=== PATIENT | female | born 1980 | race Asian ===

== ENCOUNTER 2016-07-09 16:15 | Emergency (ER) | payer MEDICAID ==
[~2016-07-09] VITALS: Ht 149.9 cm; Wt 53.1 kg
[~2016-07-09 16:15] MED LIST: ALPR.5T PO; DCS100C PO; FERR325C PO; IBP800T PO; NITR100C PO; OXYC-12 PO; PNV1TABL72 PO; PREN1TAB4 PO; PRM25T PO
--- NOTE | 2016-07-09 17:44 | ED EENT ---
History of Present Illness General Chief Complaint: Dental Problems/Pain Stated Complaint: DENTAL PAIN Nursing Triage Note: AMB TO ED REPORTS WAS EATING ON SATURDAY. BROKE TOOTH ON L SIDE . HAS DENTIS APPOINTMENT ON SAT. Source: patient Exam Limitations: no limitations History of Present Illness Time seen by provider: 18:37 Initial Comments Patient presents to the ED with c/o left lower dental pain. states she broke the tooth while eating on . patient states she has a dentist appointment saturday. Timing/Duration: abrupt Location: dental Prearrival Treatment: no prearrival treatment Presenting Symptoms/Injuries: left lower dental pain. Modifying Factors: Worse With Other (worse with palpation and chewing.) Allergies and Home Medications Allergies Coded Allergies: No Known Drug Allergies (Verified , 03/22/07) Home Medications Amoxicillin 500 Mg Capsule, 500 MG PO QID, #28 Ref 0 Prescribed by: NAVA BROOKE on 07/09/161917 Tramadol HCl 50 Mg Tablet, 50 MG PO Q4H PRN for PAIN, #14 Ref 0 Prescribed by: NAVA BROOKE on 07/09/161917 Review of Systems Constitutional: No chills, No fever, No malaise Eyes: No Symptoms Reported Ears: No Symptoms Reported Nose: no symptoms reported Mouth: see HPI, denies loose teeth, pain, denies swelling Throat: denies pain, denies swelling, denies neck stiffness, denies hoarse, denies painful swallowing, denies difficulty with fluids Respiratory: no symptoms reported Cardiovascular: no symptoms reported Gastrointestinal: no symptoms reported Skin: no symptoms reported Neurological: No Symptoms Reported All Other Systems Reviewed Negative Unless Noted: Yes (Negative excepted noted.) Past Arwbrrc-Gydyjn-Gusuay Hx Patient Social History Alcohol Use: Denies Use Recreational Drug Use: No Smoking Status: Current Everyday Smoker Recent Foreign Travel: No Contact w/Someone Who Travel: No Recent Infectious Disease Expo: No Recent Hopitalizations: Yes (C-SECTIONS) Immunizations Up To Date Date of Influenza Vaccine: Dec 30, 2010 Surgeries HX Surgeries: Yes Surgeries: Section, Hysterectomy Respiratory Hx Respiratory Disorders: No Cardiovascular Hx Cardiac Disorders: No Neurological Hx Neurological Disorders: Yes Reproductive System Hx Reproductive Disorders: Yes (CERVICAL DYSPLASIA) 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 Genitourinary Hx Genitourinary Disorders: No Gastrointestinal Hx Gastrointestinal Disorders: No Musculoskeletal Hx Musculoskeletal Disorders: No Endocrine Hx Endocrine Disorders: No HEENT HX ENT Disorders: No Psychosocial Hx Psychiatric Problems: No Blood Transfusions Hx Blood Disorders: No Reviewed Nursing Assessment Reviewed/Agree w Nursing PMH: Yes Family Medical History Significant Family History: No Pertinent Family Hx Physical Exam Vital Signs General Appearance: WD/WN, no apparent distress Eyes: bilateral eye EOMI, bilateral eye PERRL, bilateral eye normal inspection Ears: bilateral ear TM normal, bilateral ear auricle normal, bilateral ear canal normal Nose: normal inspection Mouth/Throat: pharynx normal, No excessive drooling, No mandibular swelling, No maxillary swelling, No trismus, No uvula swelling, No voice changes, other ( broken left lower tooth w/o erythema or swelling of the left lower gums.) Neck: non-tender, full range of motion, supple, normal inspection Cardiovascular: regular rate, rhythm, no murmur Respiratory: lungs clear, normal breath sounds, no respiratory distress Neurologic/Psychiatric: alert, normal mood/affect, oriented x 3 Skin: normal color, warm/dry Progress/Results/Core Measures Results/Orders My Orders Vital Signs/I&O Blood Pressure Mean: 94 Departure Impression Impression: Primary Impression: Dental caries Disposition: HOME, SELF-CARE Condition: Improved Departure-Patient Inst. Decision time for Depature: 19:17 Referrals: [facility] (PCP/Family) Primary Care Physician Patient Instructions: Dental Pain (DC) Add. Discharge Instructions: All discharge instructions reviewed with patient and/or family. Voiced understanding. Medications as instructed. Tylenol extra strength over-the- counter as directed for pain. Ibuprofen 800 mg by mouth every 8 hours as needed for pain. Lidocaine gauze- Place 1 pad between affected teeth and bite down gently for 5-10 minutes. Repeat every 6 hours as needed for pain. Do not fall asleep early down with the gauze in your mouth as this may result and choking or . Ice packs or warm packs as needed for pain. Soft diet. Follow-up with your dentist on Saturday as previously scheduled. Return to the emergency department for worsened symptoms or any other concerns. Scripts Amoxicillin (Amoxicillin) 500 Mg Capsule 500 MG PO QID, #28 CAP 0 Refills Prov: NAVA BROOKE 07/09/16 Tramadol HCl (Tramadol HCl) 50 Mg Tablet 50 MG PO Q4H Y for PAIN, #14 TAB 0 Refills Prov: NAVA BROOKE 07/09/16 Work/School Note: Work Release Form Date Seen in the Emergency Department: Jul 09, 2016 Return to Work: Jul 10, 2016 Restrictions: No Restrictions NAVA BROOKE Jul 09, 2016 17:44
[2016-07-09] MEDS ORDERED: TRAM50TA2 PO (19:18)
[2016-07-09] MEDS ORDERED: AMOX500C2 PO (19:18)
[2016-07-09 19:26] VITALS: BP 125/74
[2016-07-09] MEDS ORDERED: LIDOCAINE 2% VISCOUS 15 ML UDC PO ONE (19:30)
== END 2016-07-09 19:25 | disposition home or self-care (01) ==
LOC: EDUNIT# 16:15 → ER 16:18
DX: K02.9 Dental caries, unspecified (principal); F17.210 Nicotine dependence, cigarettes, uncomplicated
CPT/HCPCS: 99282

== ENCOUNTER 2016-12-12 23:34 | Emergency (ER) | payer MEDICAID ==
[~2016-12-12] VITALS: Ht 149.9 cm; Wt 53.1 kg
[~2016-12-12 23:34] MED LIST changes: +AMOX500C2 PO; +TRAM50TA2 PO
[2016-12-13] MEDS ORDERED: KETOROLAC 60 MG/2 ML VIAL IM STA (00:08)
[2016-12-13] MEDS ORDERED: RX-NAPROXEN (NAPROSYN) 250 MG TAB PPK#4 PO STA (00:08)
[2016-12-13] MEDS ORDERED: AMOX-358 PO (00:15)
[2016-12-13] MEDS ORDERED: AUGMENTIN 875 MG TAB (AMOXICILLIN/CLAVULANATE) PO SCH (00:15)
[2016-12-13] MEDS ORDERED: LIDO15SO2 MM (00:15)
[2016-12-13] MEDS ORDERED: LIDOCAINE 1% INJ 20 ML (XYLOCAINE) VIAL INJ ONE (00:15)
[2016-12-13] MEDS ORDERED: cefTRIAXone 1 GM (ROCEPHIN) VIAL IM ONE (00:15)
[2016-12-13] MEDS ORDERED: LIDOCAINE 2% VISCOUS 15 ML UDC MM ONE (00:15)
[2016-12-13] MEDS ORDERED: KETO10TA PO (00:15)
--- NOTE | 2016-12-13 00:15 | ED EENT ---
History of Present Illness General Chief Complaint: Dental Problems/Pain Stated Complaint: DENTAL PAIN Nursing Triage Note: PT AMBULATED TO ROOM. PT COMPLAINS OF RIGHT LOWER DENTAL PAIN SINCE SATURDAY. PT IS ON ANTIBIOTICS AND STATES NOTHING IS HELPING, SHE FEELS LIKE SHE IS GETTING WORSE. PT HAS BEEN TAKING IBUPROFEN FOR PAIN. Source: patient History of Present Illness Time seen by provider: 23:55 Initial Comments C/O DENTAL PAIN SINCE SATURDAY --RIGHT LOWER JAW AREA BEGAN TO SWELL ON SATURDAY HAS CHRONIC DENTAL PROBLEMS, AND CLAIMS "THIS IS THE 6TH TIME IN 3 MONTHS THAT I 'VE HAD AN ABSCESS" --STATES USUALLY WITH THIS TOOTH PT WAS SEEN [facility] ON FOR THIS PROBLEM, AND WAS GIVEN RX FOR CLINDAMYCIN 300 MG 1 TID #30 ( PT STILL HAS #15 PILLS IN BOTTLE, AND ADMITS SHE HAS NOT BEEN TAKING THEM ON A DAILY BASIS) WAS ALSO REFERRED TO [facility] IN [place], AND HAS AN APPOINTMENT "TO GET 7 TEETH PULLED" ON 12/19/16 PT STATES AREA IS GETTING WORSE, BUT HAS NOT ATTEMPTED TO FOLLOW UP WITH DR. MCGILL AGAIN STATES NO RELIEF WITH IBUPROFEN NO FEVER PCP: [facility] AND DR. JARAMILLO Allergies and Home Medications Allergies Coded Allergies: No Known Drug Allergies (Verified , 03/22/07) Home Medications Amoxicillin 500 Mg Capsule, 500 MG PO QID, #28 Ref 0 Prescribed by: NAVA BROOKE on 07/09/161917 Amoxicillin/Potassium Clav 1 Each Tablet, 2 EACH PO BID, #40 Prescribed by: MARC GARCIA on 12/13/1614 Ketorolac Tromethamine 10 Mg Tablet, 10 MG PO Q6H, #15 Prescribed by: MARC GARCIA on 12/13/1614 Lidocaine HCl 15 Ml Solution, 1-2 ML MM Q 1-2 HOURS, #100 Prescribed by: MARC GARCIA on 12/13/1614 Tramadol HCl 50 Mg Tablet, 50 MG PO Q4H PRN for PAIN, #14 Ref 0 Prescribed by: NAVA BROOKE on 07/09/161917 Review of Systems Constitutional: no symptoms reported Eyes: No Symptoms Reported Ears: No Symptoms Reported Nose: no symptoms reported Mouth: see HPI, pain, swelling Throat: no symptoms reported Respiratory: no symptoms reported Cardiovascular: no symptoms reported Gastrointestinal: no symptoms reported Musculoskeletal: no symptoms reported Skin: no symptoms reported Neurological: No Symptoms Reported Hematologic/Lymphatic: No Symptoms Reported Immunological/Allergic: no symptoms reported Past Pbanxew-Qppnup-Lvptrk Hx Patient Social History Alcohol Use: Denies Use Recreational Drug Use: No (DENIES) Smoking Status: Current Everyday Smoker (1 PPD) Type Used: Cigarettes 2nd Hand Smoke Exposure: No Recent Foreign Travel: No Contact w/Someone Who Travel: No Recent Infectious Disease Expo: No Recent Hopitalizations: No Physical Abuse: No Sexual Abuse: No Immunizations Up To Date Date of Influenza Vaccine: Dec 30, 2010 Seasonal Allergies Seasonal Allergies: No Surgeries History of Surgeries: Yes (HYST/OVARIES IN PLACE 2011; X 3; BMT'S) Surgeries: Section, Ear Surgery, Hysterectomy Respiratory History of Respiratory Disorde: No Cardiovascular History of Cardiac Disorders: No Neurological History of Neurological Disord: No Reproductive System : No Hx Reproductive Disorders: Yes (CERVICAL DYSPLASIA--S/P HYST) Sexually Transmitted Disease: 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 Genitourinary History of Genitourinary Disor: No Gastrointestinal History of Gastrointestinal Di: No Musculoskeletal History of Musculoskeletal Dis: No Endocrine History of Endocrine Disorders: No HEENT History of HEENT Disorders: Yes (CHRONIC DENTAL PROBLEMS; S/P BMT'S) 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 REEKS OF CIGARETTES) Eyes: bilateral eye normal inspection, bilateral eye PERRL, bilateral eye EOMI Ears: bilateral ear auricle normal, bilateral ear canal normal, bilateral ear TM normal Nose: normal inspection Mouth/Throat: other (MILD SWELLING TO RIGHT LOWER JAW; TENDERNESS AND SWELLING AND ERYTHEMA TO GUMS AROUND RIGHT LOWER PRE-MOLARS/ APPEARANCE OF ABSCESS TO GUM TISSUE. NO FLUCTUANCE TO FACE OR SUB MANDIBULAR AREA EXTERNALLY. 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, no motor/sensory deficits, alert, oriented x 3 Skin: normal color, warm/dry, other (NO ERYTHEMA TO FACE ) Progress/Results/Core Measures Results/Orders My Orders Orders - MARC GARCIA DO Ketorolac Injection (Toradol Injection) (12/13/16 00:08) Ceftriaxone Injection (Rocephin Injectio (12/13/16 00:15) Lidocaine 1% Injection (Xylocaine 1% Inj (12/13/16 00:15) Amoxicillin/Clavulanate Tablet (Augmenti (12/13/16 00:15) Rx-Naproxen (Rx-Naprosyn) (12/13/16 00:08) Lidocaine 2% Viscous 15 Ml (Xylocaine Vi (12/13/16 00:15) Medications Given in ED Current Medications Medications Dose Ordered Sig/Manuel Route Start Time Stop Time Status Last Admin Dose Admin Ceftriaxone Sodium 1,000 mg ONCE ONCE IM 12/13/16 00:15 12/13/16 00:16 DC 12/13/16 00:20 1,000 MG Lidocaine HCl 2.1 ml ONCE ONCE INJ 12/13/16 00:15 12/13/16 00:16 DC 12/13/16 00:21 2.1 ML Lidocaine HCl 5 ml ONCE ONCE MM 12/13/16 00:15 12/13/16 00:16 DC 12/13/16 00:27 5 ML Vital Signs/I&O Vital Sign - Last 12Hours 12/12/16 12/13/16 23:38 00:38 Temp 96.9 96.9 Pulse 79 65 Resp 20 20 B/P (MAP) 163/100 Pulse Ox 100 100 O2 Delivery Room Air Room Air Blood Pressure Mean: 121 Progress Note : Progress Note PAIN IMPROVED AT DISMISSAL Departure Impression Impression: Primary Impression: Dental abscess Additional Impression: Dental caries Disposition: 01 HOME, SELF-CARE Condition: Improved Departure-Patient Inst. Referrals: [facility] (PCP/Family) Primary Care Physician Patient Instructions: Dental Pain (DC), Tooth Abscess (DC), Tooth Decay, Adult (DC) Add. Discharge Instructions: FREQUENT [place] SWISHES STOP CLINDAMYCIN KEEP YOUR APPOINTMENT WITH [place] [facility] NEXT WEEK FOLLOW UP WITH DR. MCGILL IF SYMPTOMS WORSEN All discharge instructions reviewed with patient and/or family. Voiced understanding. Scripts Lidocaine HCl (Lidocaine HCl Viscous) 15 Ml Solution 1-2 ML MM Q 1-2 HOURS for Pain, #100 ML Prov: MARC GARCIA DO 12/13/16 Ketorolac Tromethamine (Ketorolac Tromethamine) 10 Mg Tablet 10 MG PO Q6H for Pain, #15 TAB Prov: MARC GARCIA DO 12/13/16 Amoxicillin/Potassium Clav (Augmentin 875-125 Tablet) 1 Each Tablet 2 EACH PO BID for INFECTION, #40 TAB Prov: MARC GARCIA DO 12/13/16 MARC GARCIA DO Dec 13, 2016 00:15
[2016-12-13 00:38] VITALS: BP 153/92
== END 2016-12-13 00:38 | disposition home or self-care (01) ==
LOC: EDUNIT# 23:34 → ER 23:38
DX: K04.7 Periapical abscess without sinus (principal); K02.9 Dental caries, unspecified; F17.210 Nicotine dependence, cigarettes, uncomplicated; Z90.710 Acquired absence of both cervix and uterus; Z87.59 Personal history of other complications of pregnancy, childbirth and the puerperium; Z87.448 Personal history of other diseases of urinary system
CPT/HCPCS: 99284

== ENCOUNTER 2016-12-17 08:34 | Emergency (ER) | payer MEDICAID ==
[~2016-12-17] VITALS: Ht 149.9 cm; Wt 47.6 kg
[~2016-12-17 08:34] MED LIST changes: +AMOX-358 PO; +KETO10TA PO; +LIDO15SO2 MM
[2016-12-17] MEDS ORDERED: CLINDAMYCIN INJECTION 900 MG in NS (IVPB) 50 ML IV ONE (09:30)
[2016-12-17] MEDS ORDERED: KETOROLAC 30 MG/ML VIAL IVP ONE (09:30)
--- NOTE | 2016-12-17 09:30 | ED EENT ---
History of Present Illness General Chief Complaint: Dental Problems/Pain Stated Complaint: TOOTH ABCESS Nursing Triage Note: PT STATES HAVING HX OF DENTAL ABSCESSES, IS CURRNETLY ON ABX, WAS SEEN HERE IN THE ER LAST WEEK FOR PAIN ON THE LOWER RT, CC TODAY OF PAIN AND SWELLING ON THE LT LOWER. PT HAS THROWN UP THIS MORNING. PT IS SCHEDULED FOR DENTAL SURGERY THIS COMING SATURDAY. Source: patient, old records Exam Limitations: no limitations (SUAD FRANKLIN) History of Present Illness Time seen by provider: 08:50 Initial Comments Mireya Elizondo is a 36 year old female presenting to the ED with left lower jaw pain and swelling. She states that she has had abscesses on both sides on and off since early September. She has seen Dr. Lizarraga for a dental appointment and states she is scheduled to have 7 teeth pulled on 12/19/16. She was seen last week in the ED for pain and swelling of the right lower jaw, which has resolved. She was given Rocephin and prescribed amoxicillin/clavulanic acid, ketorolac, and topical lidocaine. She was not able to fill her prescription immediately but has taken the antibiotic as prescribed for the last two days. Saturday night the left side of her lower jaw began hurting. The pain worsened yesterday and there was noticeable swelling Saturday night that has been increasing. She states the ketorolac does not seem to help the pain but the lidocaine helps. She went to work this morning but left after throwing up and came here. She currently rates her pain at a 7. She reports low grade fevers controlled with ibuprofen, not being able to eat much because of the pain in her mouth, and numbness around her lips on the left side as the swelling has increased. (SUAD FRANKLIN) Allergies and Home Medications Allergies Coded Allergies: No Known Drug Allergies (Verified , 03/22/07) Home Medications Amoxicillin/Potassium Clav 1 Each Tablet, 2 EACH PO BID, #40 Prescribed by: MARC GARCIA on 12/13/16 0015 Hydrocodone/Acetaminophen 1 Each Tablet, 1 EACH PO Q4H PRN for PAIN, #20 Prescribed by: GALLO GARZA on 12/17/16 1121 Ketorolac Tromethamine 10 Mg Tablet, 10 MG PO Q6H, #15 Prescribed by: MARC GARCIA on 12/13/16 0015 Lidocaine HCl 15 Ml Solution, 1-2 ML MM Q 1-2 HOURS, #100 Prescribed by: MARC GARCIA on 12/13/16 0015 Ondansetron 4 Mg Tab.rapdis, 4 MG SL Q4H PRN for NAUSEA/VOMITING-1ST LINE, #10 Prescribed by: GALLO GARZA on 12/17/16 1123 Review of Systems Constitutional: fever (pt reports temperatures around 100, decreased with ibuprofen) Eyes: No Symptoms Reported Ears: No Symptoms Reported Nose: no symptoms reported Mouth: see HPI, pain (bilaterally, left more than right), swelling (left lower cheek and jaw), denies previous injury Throat: no symptoms reported Respiratory: no symptoms reported Cardiovascular: no symptoms reported Gastrointestinal: No abdominal pain, No nausea, vomiting (single episode this morning) Musculoskeletal: no symptoms reported Skin: no symptoms reported Neurological: Numbness (left side of mouth around lips) Hematologic/Lymphatic: No Symptoms Reported Immunological/Allergic: no symptoms reported (SUAD FRANKLIN) Past Syyhlgc-Prkdqx-Wdpawz Hx Patient Social History Alcohol Use: Denies Use Recreational Drug Use: No Smoking Status: Current Everyday Smoker Type Used: Cigarettes 2nd Hand Smoke Exposure: No Recent Foreign Travel: No Contact w/Someone Who Travel: No Recent Infectious Disease Expo: No Recent Hopitalizations: No (SUAD FRANKLIN) Immunizations Up To Date Date of Influenza Vaccine: Dec 30, 2010 (SUAD FRANKLIN) Seasonal Allergies Seasonal Allergies: Yes (SUAD FRANKLIN) Surgeries History of Surgeries: Yes (HYST/OVARIES IN PLACE 2011; X 3; BMT'S) Surgeries: Section, Ear Surgery, Hysterectomy (SUAD FRANKLIN) Respiratory History of Respiratory Disorde: No (SUAD FRANKLIN) Cardiovascular History of Cardiac Disorders: No (SUAD FRANKLIN) Neurological History of Neurological Disord: No (SUAD FRANKLIN) Reproductive System Hx Reproductive Disorders: Yes (CERVICAL DYSPLASIA--S/P HYST) 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 (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 FRANKLIN) Genitourinary History of Genitourinary Disor: No (SUAD FRANKLIN) Gastrointestinal History of Gastrointestinal Di: No (SUAD FRANKLIN) Musculoskeletal History of Musculoskeletal Dis: No (SUAD FRANKLIN) Endocrine History of Endocrine Disorders: No (SUAD FRANKLIN) HEENT History of HEENT Disorders: Yes (CHRONIC DENTAL PROBLEMS; S/P BMT'S) HEENT Disorders: Chronic Ear Infection (SUAD FRANKLIN) Cancer History of Cancer: No (SUAD FRANKLIN) Psychosocial History of Psychiatric Problem: No (SUAD FRANKLIN) Integumentary History of Skin or Integumenta: No (SUAD FRANKLIN) Blood Transfusions History of Blood Disorders: No (SUAD FRANKLIN) Family Medical History Significant Family History: No Pertinent Family Hx (SUAD FRANKLIN) Physical Exam Vital Signs Vital Sign - Last 12Hours 12/17/16 08:42 Temp 98.2 Pulse 90 Resp 20 B/P (MAP) 150/83 Pulse Ox 98 O2 Delivery Room Air (GALLO ALDRIDGE MD) General Appearance: WD/WN, mild distress, other (tearful, odor of cigarettes) Eyes: bilateral eye PERRL, bilateral eye EOMI Ears: bilateral ear auricle normal, bilateral ear canal normal, bilateral ear TM normal, bilateral ear tenderness (tender behind ears when pulling on auricle , left greater than right) Nose: normal inspection Mouth/Throat: other (left cheek and lower jaw swollen and tender to palpation from outside and within mouth, poor dentition with multiple crowns on molars, dark discoloration around base of front teeth) Neck: lymphadenopathy (R) (mild), lymphadenopathy (L) (mild with tenderness) Cardiovascular: regular rate, rhythm, no gallop, no JVD, no murmur Respiratory: lungs clear, normal breath sounds, no respiratory distress, no accessory muscle use Neurologic/Psychiatric: alert, normal mood/affect, oriented x 3 Skin: warm/dry, other (silvery-white dime-sized patches on neck, especially right side, patient reports these have been present for 20 years) (SUAD GONZALEZ) Progress/Results/Core Measures Results/Orders Lab Results Laboratory Tests Test 12/17/16 09:30 Range/Units White Blood Count 12.7 H 4.3-11.0 10^3/uL Red Blood Count 4.37 4.35-5.85 10^6/uL Hemoglobin 13.7 11.5-16.0 G/DL Hematocrit 41 35-52 % Mean Corpuscular Volume 95 80-99 FL Mean Corpuscular Hemoglobin 31 25-34 PG Mean Corpuscular Hemoglobin Concent 33 32-36 G/DL Red Cell Distribution Width 13.3 10.0-14.5 % Platelet Count 434 H 130-400 10^3/uL Mean Platelet Volume 11.4 H 7.4-10.4 FL Neutrophils (%) (Auto) 64 42-75 % Lymphocytes (%) (Auto) 23 12-44 % Monocytes (%) (Auto) 9 0-12 % Eosinophils (%) (Auto) 3 0-10 % Basophils (%) (Auto) 0 0-10 % Neutrophils # (Auto) 8.2 H 1.8-7.8 X 10^3 Lymphocytes # (Auto) 3.0 1.0-4.0 X 10^3 Monocytes # (Auto) 1.2 H 0.0-1.0 X 10^3 Eosinophils # (Auto) 0.3 0.0-0.3 10^3/uL Basophils # (Auto) 0.1 0.0-0.1 10^3/uL Sodium Level 140 135-145 MMOL/L Potassium Level 4.0 3.6-5.0 MMOL/L Chloride Level 108 H 98-107 MMOL/L Carbon Dioxide Level 24 21-32 MMOL/L Anion Gap 8 5-14 MMOL/L Blood Urea Nitrogen 5 L 7-18 MG/DL Creatinine 0.67 0.60-1.30 MG/DL Estimat Glomerular Filtration Rate > 60 BUN/Creatinine Ratio 7 Glucose Level 88 70-105 MG/DL Calcium Level 9.3 8.5-10.1 MG/DL Total Bilirubin 0.4 0.1-1.0 MG/DL Aspartate Amino Transf (AST/SGOT) 20 5-34 U/L Alanine Aminotransferase (ALT/SGPT) 24 0-55 U/L Alkaline Phosphatase 65 40-136 U/L C-Reactive Protein High Sensitivity 2.65 H 0.00-0.50 MG/DL Total Protein 7.8 6.4-8.2 GM/DL Albumin 4.3 3.2-4.5 GM/DL (GALLO ALDRIDGE MD) My Orders Orders - GALLO ALDRIDGE MD Cbc With Automated Diff (12/17/16 09:12) Comprehensive Metabolic Panel (12/17/16 09:12) Hs C Reactive Protein (12/17/16 09:12) Saline Lock/Iv-Start (12/17/16 09:12) Ct Maxillofacial W (12/17/16 09:15) Ketorolac Injection (Toradol Injection) (12/17/16 09:30) Clindamycin Injection (Cleocin Injection (12/17/16 09:30) Iohexol Injection (Omnipaque 350 Mg/Ml 1 (12/17/16 09:45) Ns (Ivpb) (Sodium Chloride 0.9% Ivpb Bag (12/17/16 09:45) Blood Culture (12/17/16 09:59) Ceftriaxone Injection (Rocephin Injectio (12/17/16 10:45) (GALLO ALDRIDGE MD) Medications Given in ED (GALLO ALDRIDGE MD) Vital Signs/I&O (GALLO ALDRIDGE MD) Blood Pressure Mean: 105 Progress Note : Progress Note Patient was interviewed, seen, and examined along with Suad Hodge, 4. I agree with MS for documentation, exam, and assessment with the following additions. Patient was seen on December 12 for similar problems on the right side of the jaw. Those improved after Rocephin injection. However, she has now developed problems on the left jaw. She has been unable to control pain at home. It took her 3 days to fill the Augmentin but she continued to take clindamycin during that time. She has been trying to take the Augmentin over the past 2 days but has had difficulty with compliance due to nausea and vomiting. On my exam patient is alert and oriented and in mild distress from pain. There is marketed swelling and mild erythema of the face lateral to the left mandible. There is generalized gingival inflammation and swelling in this area. Patient is exquisitely tender. Presence or absence of abscess cannot be determined by physical exam alone. CT scan of the face with contrast was obtained. No drainable abscess was identified. Neck was supple without significant swelling or pathologic lymphadenopathy. Lungs were clear to auscultation and heart was regular rate and rhythm without murmur. Patient has received clindamycin 900 mg by IV route. Toradol was also administered for pain control. Since patient cannot recall the name of her oral surgeon, Dr. Oneal was consulted by phone. He recommended adding Rocephin and discharging to follow-up with her surgeon as previously scheduled. I did attempt to contact her dentist's office but they were not open. A message was left on their voicemail. Call from Dr. Lizarraga was returned later in the day and she was provided an update. (GALLO ALDRIDGE MD) Departure Impression Impression: Primary Impression: Facial cellulitis Additional Impression: Dental caries Disposition: HOME, SELF-CARE Condition: Improved Departure-Patient Inst. Decision time for Depature: 11:00 (GALLO ALDRIDGE MD) Referrals: [facility] (PCP/Family) Primary Care Physician Patient Instructions: Cellulitis (Skin Infection), Adult (DC) Add. Discharge Instructions: Continue with your antibiotics as previously prescribed. You may take ibuprofen up to 400 mg (based on your weight) every 6 hours as needed for pain. Add hydrocodone for pain not controlled by ibuprofen. Keep your appointment with your oral surgeon on Saturday. Please notify them of your complications and condition by phone. I did call Dr. Lizarraga's office and left a message. The office is not open on Mondays. Return to care if symptoms worsen, especially if you have persistent fevers over 100. All discharge instructions reviewed with patient and/or family. Voiced understanding. Scripts Ondansetron (Zofran Odt) 4 Mg Tab.rapdis 4 MG SL Q4H Y for NAUSEA/VOMITING-1ST LINE, #10 TAB Prov: GALLO ALDRIDGE MD 12/17/16 Hydrocodone/Acetaminophen (Hydrocodon -Acetaminophen 5-325) 1 Each Tablet 1 EACH PO Q4H Y for PAIN, #20 TAB Prov: GALLO ALDRIDGE MD 12/17/16 Work/School Note: Work Release Form Date Seen in the Emergency Department: Dec 17, 2016 Return to Work: Dec 18, 2016 Restrictions: No Restrictions SUAD FRANKLIN Dec 17, 2016 09:30 GALLO ALDRIDGE MD Dec 17, 2016 11:21
[2016-12-17] MEDS ORDERED: NS 100 ML (IVPB) BAG IV ONE (09:45)
[2016-12-17] MEDS ORDERED: IOHEXOL 350 MG/ML 100 ML (OMNIPAQUE 350) VIAL IV ONE (09:45)
[2016-12-17 09:50] LABS: BASOPHILS # (AUTO) 0.1 10^3/uL (0.0-0.1); BASOPHILS % (AUTO) 0 % (0-10); EOSINOPHILS # (AUTO) 0.3 10^3/uL (0.0-0.3); EOSINOPHILS % (AUTO) 3 % (0-10); LYMPHOCYTES % (AUTO) 23 % (12-44); MEAN CORPUSCULAR HEMOGLOBIN 31 PG (25-34); MEAN CORPUSCULAR HGB CONC 33 G/DL (32-36); MEAN CORPUSCULAR VOLUME 95 FL (80-99); MEAN PLATELET VOLUME 11.4 FL (7.4-10.4); MONOCYTES # (AUTO) 1.2 X 10^3 (0.0-1.0); MONOCYTES % (AUTO) 9 % (0-12); NEUTROPHILS # (AUTO) 8.2 X 10^3 (1.8-7.8); NEUTROPHILS % (AUTO) 64 % (42-75); PLATELET COUNT 434 10^3/uL (130-400); RED BLOOD COUNT 4.37 10^6/uL (4.35-5.85); RED CELL DISTRIBUTION WIDTH 13.3 % (10.0-14.5); WHITE BLOOD COUNT 12.7 10^3/uL (4.3-11.0)
[2016-12-17 10:03] LABS: ALANINE AMINOTRANSFERASE 24 U/L (0-55); ALBUMIN 4.3 GM/DL (3.2-4.5); ANION GAP 8 MMOL/L (5-14); ASPARTATE AMINO TRANSFERASE 20 U/L (5-34); BILIRUBIN,TOTAL 0.4 MG/DL (0.1-1.0); BLOOD UREA NITROGEN 5 MG/DL (7-18); BUN/CREATININE RATIO 7; CALCIUM 9.3 MG/DL (8.5-10.1); CARBON DIOXIDE 24 MMOL/L (21-32); CHLORIDE 108 MMOL/L (98-107); CREATININE SERUM 0.67 MG/DL (0.60-1.30); GFR ESTIMATED > 60; GLUCOSE 88 MG/DL (70-105); SODIUM 140 MMOL/L (135-145); TOTAL PROTEIN 7.8 GM/DL (6.4-8.2); hs C REACTIVE PROTEIN 2.65 MG/DL (0.00-0.50)
--- NOTE | 2016-12-17 10:14 | Diagnostic Imaging Report ---
PROCEDURE: CT maxillofacial with contrast. TECHNIQUE: After intravenous administration of contrast, axial images were obtained through the face and reformatted into coronal and sagittal planes. INDICATION: Soft tissue swelling in the left side of the face. 75 mL of Omnipaque 350 is administered intravenously. FINDINGS: There is significant soft tissue swelling in the subcutaneous tissues along the left side of the face and in the life skills trainer space abutting the left upper and lower jaw. There is evidence of dental erosions around the lower molar teeth on the left. There is no fluid collection or abscess seen. The visualized portions of the paranasal sinuses and orbits appear unremarkable. IMPRESSION: Prominent inflammatory changes in the soft tissues along the left side of the face which appears to relate to dental source. No abscess is seen. Dictated by: Dictated on workstation # [id number]
[2016-12-17] MEDS ORDERED: cefTRIAXone INJECTION 1,000 MG in NS (IVPB) 50 ML IV ONE (10:45)
[2016-12-17] MEDS ORDERED: HYDR-3812 PO (11:21)
[2016-12-17] MEDS ORDERED: ONDA4TAB8 SL (11:23)
[2016-12-17 11:57] VITALS: BP 143/88
== END 2016-12-17 11:57 | disposition home or self-care (01) ==
LOC: EDUNIT# 08:34 → ER 08:37
DX: L03.211 Cellulitis of face (principal); K02.9 Dental caries, unspecified; F17.210 Nicotine dependence, cigarettes, uncomplicated; Z90.710 Acquired absence of both cervix and uterus; Z87.59 Personal history of other complications of pregnancy, childbirth and the puerperium
CPT/HCPCS: 36415; 70487; 80053; 85025; 86141; 87040

== ENCOUNTER 2018-06-12 08:13 | Emergency (ER) | payer SELFPAY ==
[~2018-06-12] VITALS: Ht 147.3 cm; Wt 59.0 kg
[~2018-06-12 08:13] MED LIST changes: +ACHD5005 PO; +ONDA4TAB8 SL
[2018-06-12] MEDS ORDERED: ONDANSETRON 4 MG (ZOFRAN) ORAL DISSOLVE TAB SL ONE (09:00)
[2018-06-12] MEDS ORDERED: OSLT75C PO (09:27)
[2018-06-12] MEDS ORDERED: ONDA4TAB11 SL (09:29)
--- NOTE | 2018-06-12 09:29 | ED General ---
General Chief Complaint: Cough/Cold/Flu Symptoms Stated Complaint: BODY ACHES;CHEST CONGESTION;TROUBLE BREATHING Nursing Triage Note: ARRIVED VIA AMB TO ROOM 06. COMPLAINS OF A DEEP COUGH THAT IS MAKING HER CHEST HURT ALONG WITH SEVERE BODY AND BACK ACHES. Nursing Sepsis Screen: No Definite Risk Source of Information: Patient Exam Limitations: No Limitations History of Present Illness Date Seen by Provider: Jun 12, 2018 Time Seen by Provider: 08:26 Initial Comments This 38-year-old woman presents to emergency room with complaints of acute onset of intense flulike symptoms starting yesterday. Symptoms include burning sensation in the chest, fever, headache, cough, dizziness, shortness of air, myalgia, and vomiting. She did not receive an influenza vaccination this year. She has been taking Tylenol and ibuprofen without significant relief. Allergies and Home Medications Allergies Coded Allergies: No Known Drug Allergies (Verified , 03/22/07) Home Medications Hydrocodone/Acetaminophen 1 Each Tablet, 1 TAB PO Q4-6HR PRN for PAIN-MODERATE TO SEVERE Prescribed by: GALLO GARZA on 06/12/18 0932 Ondansetron 4 Mg Tab.rapdis, 4 MG SL Q4H PRN for NAUSEA/VOMITING Prescribed by: GALLO GARZA on 06/12/18 0929 Oseltamivir Phosphate 75 Mg Cap, 75 MG PO BID Prescribed by: GALLO GARZA on 06/12/18 09 Patient Home Medication List Home Medication List Reviewed: Yes Review of Systems Review of Systems Constitutional: see HPI EENTM: see HPI Respiratory: see HPI Cardiovascular: no symptoms reported Gastrointestinal: see HPI Genitourinary: no symptoms reported : No Musculoskeletal: see HPI Skin: no symptoms reported Psychiatric/Neurological: See HPI Hematologic/Lymphatic: No Symptoms Reported Past Lzmectw-Ihljgk-Bpirug Hx Patient Social History Alcohol Use: Denies Use Recreational Drug Use: No Smoking Status: Current Everyday Smoker Type Used: Cigarettes 2nd Hand Smoke Exposure: No Recent Foreign Travel: No Contact w/Someone Who Travel: No Recent Infectious Disease Expo: No Recent Hopitalizations: No Immunizations Up To Date Date of Influenza Vaccine: Dec 30, 2010 Seasonal Allergies Seasonal Allergies: Yes Past Medical History Surgeries: Yes (HYST/OVARIES IN PLACE 2011; X 3; BMT'S) Section, Ear Surgery, Hysterectomy Respiratory: No Cardiac: No Neurological: No : No Reproductive Disorders: Yes (CERVICAL DYSPLASIA--S/P HYST) 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 0.0oz. 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 Norm as Tested Skin: Normal Color, Warm/Dry Progress/Results/Core Measures Suspected Sepsis Recent Fever Within 48 Hours: No Infection Criteria Present: Suspected New Infection New/Unexplained Altered Menta: No Sepsis Screen: No Definite Risk SIRS Temperature:99.9 Pulse: 102 Respiratory Rate: 18 Blood Pressure 132 /86 Mean: 101 Results/Orders Micro Results Microbiology 06/12/18 Influenza Types A,B Antigen (CHEPE) - Final, Complete My Orders Orders - GALLO ALDRIDGE MD Influenza A And B Antigens (06/12/18 08:26) Ondansetron Oral Dissolve Tab (Zofran (06/12/18 09:00) Chest Pa/Lat (2 View) (06/12/18 08:52) Medications Given in ED Current Medications Medications Dose Ordered Sig/Manuel Route Start Time Stop Time Status Last Admin Dose Admin Ondansetron HCl 8 mg ONCE ONCE SL 06/12/18 09:00 06/12/18 09:01 DC 06/12/18 09:08 8 MG Vital Signs/I&O 06/12/18 06/12/18 08:20 09:45 Temp 99.9 101.2 Pulse 102 103 Resp 18 18 B/P (MAP) 132/86 (101) 132/86 (101) Pulse Ox 95 94 O2 Delivery Room Air Room Air Capillary Refill : Less Than 3 Seconds Blood Pressure Mean: 101 Progress Note : Progress Note Chest x-ray was obtained because of productive coarse cough no pneumonia was identified. Influenza screen was positive. Patient was treated with Zofran. Prescriptions were provided for Zofran and Tamiflu. Hydrocodone was also prescribed due to patient's intense sensation of chest burning that does not seem to be improved with Tylenol and ibuprofen. Diagnostic Imaging Diagonstic Imaging: Xray Plain Films/CT/US/NM/MRI: chest Comments Chest x-ray viewed by me and report reviewed. See report below: NAME: SARABJIT ABDALLA [facility] REC#: [id number] PT STATUS: REG ER : 1980 PHYSICIAN: GALLO ALDRIDGE MD ADMIT DATE: 06/12/18/ER Draft Date of Exam:06/12/18 CHEST PA/LAT (2 VIEW) Indication: Body aches and chest congestion and cough. Time of exam: 9:14 AM Correlation is made with prior chest from 04/09/2011. The heart size is normal. The pulmonary vascularity is unremarkable. The lungs are clear. No infiltrate, effusion or pneumothorax is detected. Impression: No acute cardiopulmonary process is detected. Dictated on workstation # [id number] Dict: 06/12/18922 Trans: 06/12/1827 [facility] [id number] Interpreted by: EDGAR ALVAREZ MD Departure Impression Primary Impression: Influenza A Additional Impression: Nausea and vomiting Qualified Codes: R11.2 - Nausea with vomiting, unspecified Disposition: 01 HOME, SELF-CARE Condition: Stable Departure-Patient Inst. Decision time for Depature: 09:25 Referrals: [facility] (PCP/Family) Primary Care Physician Patient Instructions: Flu, Adult (DC) Add. Discharge Instructions: For pain and fever take ibuprofen up to 600 mg every 6 hours as needed and Tylenol (acetaminophen) up to 1000 mg every 6 hours as needed. If you use hydrocodone for pain, avoid doubling up on the acetaminophen dose. Drink plenty of clear liquids. Do not return to work or school until at least 7 days after onset of symptoms. See note. Start Tamiflu immediately and complete the entire course as prescribed. Return to care if you have worsening symptoms despite treatment. Use Zofran (ondansetron) dissolved under the tongue every 4 hours as needed for nausea and vomiting. In the future, obtain the influenza vaccine before each flu season. This will reduce the risk of [place] influenza and will decrease the intensity and duration of symptoms if you do contract the flu. All discharge instructions reviewed with patient and/or family. Voiced understanding. Scripts Hydrocodone/Acetaminophen (Hydrocodone-Acetamin 5-325 mg) 1 Each Tablet 1 TAB PO Q4-6HR PRN for PAIN-MODERATE TO SEVERE MDD 10, #8 TAB Prov: GALLO ALDRIDGE MD 06/12/18 Ondansetron (Ondansetron Odt) 4 Mg Tab.rapdis 4 MG SL Q4H PRN for NAUSEA/VOMITING, #10 TAB 1 Refill Prov: GALLO ALDRIDGE MD 06/12/18 Oseltamivir Phosphate (Tamiflu) 75 Mg Cap 75 MG PO BID, #10 CAP Prov: GALLO ALDRIDGE MD 06/12/18 Work/School Note: Work Release Form Date Seen in the Emergency Department: Jun 12, 2018 Return to Work: Jun 18, 2018 Restrictions: Return-No Fever (24hrs) GALLO ALDRIDGE MD Jun 12, 2018 09:29
[2018-06-12] MEDS ORDERED: HYDR-3812 PO (09:32)
--- NOTE | 2018-06-12 09:35 | NUR ---
IN ROOM WITH THE PT AT THIS TIME.
[2018-06-12 09:45] VITALS: BP 132/86
--- NOTE | 2018-06-12 09:45 | NUR ---
OFFERED PT IBUPROFEN BEFORE SHE LEFT [facility] STATES SHE WOULD TAKE SOME AT HOME.
== END 2018-06-12 09:44 | disposition home or self-care (01) ==
LOC: EDUNIT# 08:13 → ER 08:15
DX: J10.1 Influenza due to other identified influenza virus with other respiratory manifestations (principal); R11.2 Nausea with vomiting, unspecified; F17.210 Nicotine dependence, cigarettes, uncomplicated; Z90.710 Acquired absence of both cervix and uterus; Z98.890 Other specified postprocedural states; Z86.19 Personal history of other infectious and parasitic diseases
CPT/HCPCS: 71046; 87804

== ENCOUNTER 2018-08-06 00:39 | Emergency (ER) | payer SELFPAY ==
[~2018-08-06] VITALS: Ht 149.9 cm; Wt 56.7 kg
[~2018-08-06 00:39] MED LIST changes: +HYDR-3812 PO; +ONDA4TAB11 SL; +OSLT75C PO
--- OUTSIDE RECORDS SUMMARY | 2018-08-06 00:49 | XMS REPORT | Continuity of Care Document ---
Author Organization Unknown Address Unknown Allergies Active Description Code Type Severity Reaction Onset Reported/Identified Relationship to Patient Clinical Status Yes No Known Drug Allergies [id number] Drug Allergy Unknown N/A 03/22/2007 Medications There is no data. Problems Date Dx Coded Attending Type Code Diagnosis Diagnosed By 01/05/2008 JOSLYN NIEVES APRN V25.49 SURVEILLANCE OF OTHER CONTRACEPTIVE METHOD 01/05/2008 JOSLYN NIEVES APRN V72.31 ROUTINE GYNECOLOGICAL EXAMINATION 01/05/2008 JOSLYN NIEVES APRN V25.49 SURVEILLANCE OF OTHER CONTRACEPTIVE METHOD 01/05/2008 JOSLYN NIEVES APRN V72.31 ROUTINE GYNECOLOGICAL EXAMINATION 01/05/2008 JOSLYN NIEVES APRN V25.49 SURVEILLANCE OF OTHER CONTRACEPTIVE METHOD 01/05/2008 JOSLYN NIEVES APRN V72.31 ROUTINE GYNECOLOGICAL EXAMINATION 01/05/2008 V25.49 SURVEILLANCE OF OTHER CONTRACEPTIVE METHOD 01/05/2008 V72.31 ROUTINE GYNECOLOGICAL EXAMINATION 01/05/2008 V25.49 SURVEILLANCE OF OTHER CONTRACEPTIVE METHOD 01/05/2008 V72.31 ROUTINE GYNECOLOGICAL EXAMINATION 01/05/2008 MAXINE MILES DO V25.49 SURVEILLANCE OF OTHER CONTRACEPTIVE METHOD 01/05/2008 MAXINE MILES DO V72.31 ROUTINE GYNECOLOGICAL EXAMINATION 01/05/2008 ELOINA DE LA CRUZ APRN N V25.49 SURVEILLANCE OF OTHER CONTRACEPTIVE METHOD 01/05/2008 ELOINA DE LA CRUZ APRN N V72.31 ROUTINE GYNECOLOGICAL EXAMINATION 01/05/2008 BISI MILES DOA K V25.49 SURVEILLANCE OF OTHER CONTRACEPTIVE METHOD 01/05/2008 BISI MILES DOA K V72.31 ROUTINE GYNECOLOGICAL EXAMINATION 01/05/2008 BISI MILES DOA K V25.49 SURVEILLANCE OF OTHER CONTRACEPTIVE METHOD 01/05/2008 BISI MILES DOA K V72.31 ROUTINE GYNECOLOGICAL EXAMINATION 01/05/2008 JOSLYN NIEVES APRN V25.49 SURVEILLANCE OF OTHER CONTRACEPTIVE METHOD 01/05/2008 NIEVES STRUCTURAL ANALYSIS ENGINEERJOSLYN Dobbins V72.31 ROUTINE GYNECOLOGICAL EXAMINATION 10/06/2010 Ot 644.03 THRT LACY LABOR-ANTEPART 10/08/2010 Ot 644.03 THRT LACY LABOR-ANTEPART 10/25/2010 Ot 285.1 AC POSTHEMORRHAG ANEMIA 10/25/2010 Ot 648.22 ANEMIA- DELIVERED W P/P 10/25/2010 Ot 654.21 PREV DELIVRY W/ OR W/O MENT ANT 10/25/2010 Ot V27.0 DELIVER- SINGLE LIVEBORN 04/06/2011 Ot 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 04/06/2011 Ot 285.1 AC POSTHEMORRHAG ANEMIA 04/06/2011 Ot 626.8 MENSTRUAL DISORDER NEC 04/09/2011 Ot 305.1 TOBACCO USE DISORDER 04/09/2011 Ot 486 PNEUMONIA, ORGANISM NOS 04/09/2011 Ot 518.0 PULMONARY COLLAPSE 04/09/2011 Ot 560.1 PARALYTIC ILEUS 04/09/2011 Ot 997.39 OTHER RESPIRATORY COMPLICATIONS 04/09/2011 Ot 997.49 OTHER DIGESTIVE SYSTEM COMPLICATIONS 04/09/2011 Ot V88.01 ACQUIRED ABSENCE OF BOTH CERVIX AND UTER 09/21/2011 Ot 372.30 CONJUNCTIVITIS NOS 09/21/2011 Ot 379.93 REDNESS/ DISCHARGE OF EYE 09/24/2011 LIZBETH HESSJOSLYN 372.00 ACUTE CONJUNCTIVITIS UNSPECIFIED 09/24/2011 LIZBETH HESS JOSLYN WAITE 461.9 SINUSITIS ACUTE 09/24/2011 LIZBETH HESS JOSLYN WAITE 372.00 ACUTE CONJUNCTIVITIS UNSPECIFIED 09/24/2011 LIZBETH HESS JOSLYN WAITE 461.9 SINUSITIS ACUTE 09/24/2011 LIZEBTH HESS JOSLYN WAITE 372.00 ACUTE CONJUNCTIVITIS UNSPECIFIED 09/24/2011 LIZBETH HESS JOSLYN WAITE 461.9 SINUSITIS ACUTE 09/24/2011 372.00 ACUTE CONJUNCTIVITIS UNSPECIFIED 09/24/2011 461.9 SINUSITIS ACUTE 09/24/2011 372.00 ACUTE CONJUNCTIVITIS UNSPECIFIED 09/24/2011 461.9 SINUSITIS ACUTE 09/24/2011 MAXINE MILES DO 372.00 ACUTE CONJUNCTIVITIS UNSPECIFIED 09/24/2011 MILES DO, MAXINE K 461.9 SINUSITIS ACUTE 09/24/2011 TAVO PINTO APRN, ELOINA N 372.00 ACUTE CONJUNCTIVITIS UNSPECIFIED 09/24/2011 ELOINA DE LA CRUZ APRN N 461.9 SINUSITIS ACUTE 09/24/2011 BISI MILES DOA K 372.00 ACUTE CONJUNCTIVITIS UNSPECIFIED 09/24/2011 MILES BISI RODRÍGUEZA K 461.9 SINUSITIS ACUTE 09/24/2011 MILES , MAXINE K 372.00 ACUTE CONJUNCTIVITIS UNSPECIFIED 09/24/2011 GINGER RODRÍGUEZ, MAXINE K 461.9 SINUSITIS ACUTE 09/24/2011 JOSLYN NIEVES APRN 372.00 ACUTE CONJUNCTIVITIS UNSPECIFIED 09/24/2011 LIZBETH MEANSShilpi JOSLYN WAITE 461.9 SINUSITIS ACUTE 11/20/2011 LIZBETH MEANSShilpi JOSLYN MARIANN 300.00 ANXIETY UNSPEC 11/20/2011 LIZBETH MEANSShilpi JOSLYN MARIANN 300.00 ANXIETY UNSPEC 11/20/2011 LIZBETH MEANSShilpi JOSLYN MARIANN 300.00 ANXIETY UNSPEC 11/20/2011 300.00 ANXIETY UNSPEC 11/20/2011 300.00 ANXIETY UNSPEC 11/20/2011 BISI MILES DOA K 300.00 ANXIETY UNSPEC 11/20/2011 ELOINA DE LA CRUZ APRN N 300.00 ANXIETY UNSPEC 11/20/2011 BISI MILES DOA K 300.00 ANXIETY UNSPEC 11/20/2011 BISI MILES DOA K 300.00 ANXIETY UNSPEC 11/20/2011 LIZBETH MEANSNJOSLYN 300.00 ANXIETY UNSPEC 01/08/2012 LIZBETH MEANSShilpi JOSLYN MARIANN 296.32 MO DEPRESSIVE RECURRENT MODERATE 01/08/2012 LIZBETH MEANSShilpi JOSLYN MARIANN 300.01 AN PANIC DIS W/O AGORA 01/08/2012 LIZBETH MEANSShilpi JOSLYN MARIANN 296.32 MO DEPRESSIVE RECURRENT MODERATE 01/08/2012 NIEVES DESHAWN JOSLYN MARIANN 300.01 AN PANIC DIS W/O AGORA 01/08/2012 LIZBETH MEANSShilpi JOSLYN MARIANN 296.32 MO DEPRESSIVE RECURRENT MODERATE 01/08/2012 LIZBETH MEANSShilpi JOSLYN MARIANN 300.01 AN PANIC DIS W/O AGORA 01/08/2012 296.32 MO DEPRESSIVE RECURRENT MODERATE 01/08/2012 300.01 AN PANIC DIS W/O AGORA 01/08/2012 296.32 MO DEPRESSIVE RECURRENT MODERATE 01/08/2012 300.01 AN PANIC DIS W/O AGORA 01/08/2012 MILES IBSI RODRÍGUEZA K 296.32 MO DEPRESSIVE RECURRENT MODERATE 01/08/2012 MILES DO MAXINE K 300.01 AN PANIC DIS W/O AGORA 01/08/2012 ELOINA DE LA CRUZ APRN N 296.32 MO DEPRESSIVE RECURRENT MODERATE 01/08/2012 ELOINA DE LA CRUZ APRN N 300.01 AN PANIC DIS W/O AGORA 01/08/2012 BISI MILES DOA K 296.32 MO DEPRESSIVE RECURRENT MODERATE 01/08/2012 MILES DO MAXINE K 300.01 AN PANIC DIS W/O AGORA 01/08/2012 BISI MILES DOA K 296.32 MO DEPRESSIVE RECURRENT MODERATE 01/08/2012 BISI MILES DOA K 300.01 AN PANIC DIS W/O AGORA 01/08/2012 LIZBETH HESS JOSLYN WAITE 296.32 MO DEPRESSIVE RECURRENT MODERATE 01/08/2012 LIZBETH HESS JOSLYN WAITE 300.01 AN PANIC DIS W/O AGORA 05/08/2012 LIZBETH HESS JOSLYN WAITE 305.1 TOBACCO ABUSE 05/08/2012 LIZBETH HESS JOSLYN WAITE 616.10 VAGINITIS AND VULVOVAGINITIS UNSPECIFIED 05/08/2012 LIZBETH HESS JOSLYN WAITE V74.5 STD SCREEN 05/08/2012 LIZBETH HESS JOSLYN WAITE V76.47 VAGINAL PAP SMEAR SCREENING 05/08/2012 LIZBETH HESS JOSLYN WAITE 305.1 TOBACCO ABUSE 05/08/2012 LIZBETH HESS JOSLYN WAITE 616.10 VAGINITIS AND VULVOVAGINITIS UNSPECIFIED 05/08/2012 LIZBETH HESS JOSLYN WAITE V74.5 STD SCREEN 05/08/2012 LIZBETH HESS JOSLYN WAITE V76.47 VAGINAL PAP SMEAR SCREENING 05/08/2012 305.1 TOBACCO ABUSE 05/08/2012 616.10 VAGINITIS AND VULVOVAGINITIS UNSPECIFIED 05/08/2012 V74.5 STD SCREEN 05/08/2012 V76.47 VAGINAL PAP SMEAR SCREENING 05/08/2012 305.1 TOBACCO ABUSE 05/08/2012 616.10 VAGINITIS AND VULVOVAGINITIS UNSPECIFIED 05/08/2012 V74.5 STD SCREEN 05/08/2012 V76.47 VAGINAL PAP SMEAR SCREENING 05/08/2012 MILES DO MAXINE K 305.1 TOBACCO ABUSE 05/08/2012 MILES DO, MAXINE K 616.10 VAGINITIS AND VULVOVAGINITIS UNSPECIFIED 05/08/2012 MILES DO, MAXINE K V74.5 STD SCREEN 05/08/2012 MILES DO, MAXINE K V76.47 VAGINAL PAP SMEAR SCREENING 05/08/2012 VO CASHERO STRUCTURAL ANALYSIS ENGINEER, ELOINA N 305.1 TOBACCO ABUSE 05/08/2012 VO CASHERO STRUCTURAL ANALYSIS ENGINEER, ELOINA N 616.10 VAGINITIS AND VULVOVAGINITIS UNSPECIFIED 05/08/2012 VO CASHERO STRUCTURAL ANALYSIS ENGINEER, ELOINA N V74.5 STD SCREEN 05/08/2012 VO CASHERO STRUCTURAL ANALYSIS ENGINEER, ELOINA N V76.47 VAGINAL PAP SMEAR SCREENING 05/08/2012 MILES DO MAXINE K 305.1 TOBACCO ABUSE 05/08/2012 MILES DO MAXINE K 616.10 VAGINITIS AND VULVOVAGINITIS UNSPECIFIED 05/08/2012 MILES , MAXINE K V74.5 STD SCREEN 05/08/2012 MILES DO, MAXINE K V76.47 VAGINAL PAP SMEAR SCREENING 05/08/2012 MILES , MAXINE K 305.1 TOBACCO ABUSE 05/08/2012 MILES DO, MAXINE K 616.10 VAGINITIS AND VULVOVAGINITIS UNSPECIFIED 05/08/2012 MILES DO, MAXINE K V74.5 STD SCREEN 05/08/2012 GINGER RODRÍGUEZ MAXINE K V76.47 VAGINAL PAP SMEAR SCREENING 10/03/2012 077.99 CONJUNCTIVITIS VIRAL (ACUTE) 10/03/2012 077.99 CONJUNCTIVITIS VIRAL (ACUTE) 10/03/2012 MILES DO MAXINE K 077.99 CONJUNCTIVITIS VIRAL (ACUTE) 10/03/2012 TAVO PINTO APRN, ELOINA N 077.99 CONJUNCTIVITIS VIRAL (ACUTE) 10/03/2012 MILES DO MAXINE K 077.99 CONJUNCTIVITIS VIRAL (ACUTE) 10/03/2012 MILES DO MAXINE K 077.99 CONJUNCTIVITIS VIRAL (ACUTE) 10/15/2012 LUIS CARLOS WISE, GALLO Clemons Ot 346.90 MIGRAINE UNSPECIFIED W/O INTRACT MGRN W/ 10/15/2012 LUIS CARLOS WISE, GALLO Kaci Ot 784.0 HEADACHE 10/20/2012 300.02 AN GEN ANXIETY 10/20/2012 MILES DO, MAXINE K 300.02 AN GEN ANXIETY 10/20/2012 TAVO PINTO APRShilpi ELOINA N 300.02 AN GEN ANXIETY 10/20/2012 MILES DO, MAXINE K 300.02 AN GEN ANXIETY 10/20/2012 MILES DO, MAXINE K 300.02 AN GEN ANXIETY 12/16/2012 MILES DO, MAXINE K 381.81 EUSTACHIAN TUBE DYSFUNCTION 12/16/2012 MILES DO, MAXINE K 465.9 UPPER RESPIRATORY INFECTION 12/16/2012 TAVO LOBOKIRTI STRUCTURAL ANALYSIS ENGINEERYESY DobbinsCY N 381.81 EUSTACHIAN TUBE DYSFUNCTION 12/16/2012 VO MILLIE MEANSNYESYCY N 465.9 UPPER RESPIRATORY INFECTION 12/16/2012 MILES DO, MAXINE K 381.81 EUSTACHIAN TUBE DYSFUNCTION 12/16/2012 MILES DO, MAXINE K 465.9 UPPER RESPIRATORY INFECTION 12/16/2012 MILES DO, MAXINE K 381.81 EUSTACHIAN TUBE DYSFUNCTION 12/16/2012 MILES DO, MAXINE K 465.9 UPPER RESPIRATORY INFECTION 06/23/2013 TAVO PINTO APRYESY DobbinsCY N 478.19 OTHER DISEASES OF NASAL CAVITY AND SINUSES 06/23/2013 TAVO PINTO APRN, ELOINA N 786.2 COUGH 06/23/2013 TAVO PINTO APRN, ELOINA N 787.91 DIARRHEA 06/23/2013 MILES DO, MAXINE K 478.19 OTHER DISEASES OF NASAL CAVITY AND SINUSES 06/23/2013 MILES DO, MAXINE K 786.2 COUGH 06/23/2013 MILES DO, MAXINE K 787.91 DIARRHEA 06/23/2013 MILES DO, MAXINE K 478.19 OTHER DISEASES OF NASAL CAVITY AND SINUSES 06/23/2013 MILES DO, MAXINE K 786.2 COUGH 06/23/2013 MILES DO, MAXINE K 787.91 DIARRHEA 08/08/2013 MILES DO, MAXINE K V01.71 CONTACT WITH OR EXPOSURE TO VARICELLA 08/08/2013 MILES DO, MAXINE K V01.71 CONTACT WITH OR EXPOSURE TO VARICELLA 01/09/2016 Ot 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 01/09/2016 Ot V72.63 PRE- PROCEDURAL LABORATORY EXAMINATION 01/09/2016 Ot V74.8 SCREEN- BACTERIAL DIS NEC 01/11/2016 FENECH DO, LATASHA Bear Ot N63 UNSPECIFIED LUMP IN BREAST 01/11/2016 FENECH DO, LATASHA Bear Ot N64.4 MASTODYNIA 01/20/2016 FENECH DO, LATASHA Bear Ot N63 UNSPECIFIED LUMP IN BREAST 01/20/2016 FENECH DO, LATASHA Bear Ot N64.4 MASTODYNIA 07/09/2016 Ot 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 07/09/2016 Ot V72.63 PRE- PROCEDURAL LABORATORY EXAMINATION 07/09/2016 Ot V74.8 SCREEN- BACTERIAL DIS NEC 07/09/2016 FENECH DO, LATASHA Bear Ot N63 UNSPECIFIED LUMP IN BREAST 07/09/2016 FENECH DO, LATASHA Bear Ot N64.4 MASTODYNIA 07/09/2016 NAVA VOGEL Ot F17.210 NICOTINE DEPENDENCE, CIGARETTES, UNCOMPL 07/09/2016 NAVA VOGEL Ot K02.9 DENTAL CARIES, UNSPECIFIED 07/09/2016 NAVA VOGEL Ot K08.9 DISORDER OF TEETH AND SUPPORTING STRUCTU 07/10/2016 NAVA VOGEL Ot F17.210 NICOTINE DEPENDENCE, CIGARETTES, UNCOMPL 07/10/2016 NAVA VOGEL Ot K02.9 DENTAL CARIES, UNSPECIFIED 07/10/2016 NAVA VOGEL Ot K08.9 DISORDER OF TEETH AND SUPPORTING STRUCTU 07/11/2016 NAVA VOGEL Ot F17.210 NICOTINE DEPENDENCE, CIGARETTES, UNCOMPL 07/11/2016 NAVA VOGEL Ot K02.9 DENTAL CARIES, UNSPECIFIED 07/11/2016 NAVA VOGEL Ot K08.9 DISORDER OF TEETH AND SUPPORTING STRUCTU 12/13/2016 MARC GARCIA DO Ot F17.210 NICOTINE DEPENDENCE, CIGARETTES, UNCOMPL 12/13/2016 MARC GARCIA DO Ot K02.9 DENTAL CARIES, UNSPECIFIED 12/13/2016 MARC GARCIA DO Ot K04.7 PERIAPICAL ABSCESS WITHOUT SINUS 12/13/2016 MARC GARCIA DO Ot K08.89 OTHER SPECIFIED DISORDERS OF TEETH AND S 12/13/2016 MARC GARCIA DO Ot Z87.448 PERSONAL HISTORY OF OTHER DISEASES OF UR 12/13/2016 JOSE , MARC K Ot Z87.59 PERSONAL HISTORY OF COMP OF PREG, CHLDBR 12/13/2016 JOSE , MARC K Ot Z90.710 ACQUIRED ABSENCE OF BOTH CERVIX AND UTER 12/14/2016 JOSE MARC K Ot F17.210 NICOTINE DEPENDENCE, CIGARETTES, UNCOMPL 12/14/2016 JOSE DO MARC K Ot K02.9 DENTAL CARIES, UNSPECIFIED 12/14/2016 JOSE DO, MARC K Ot K04.7 PERIAPICAL ABSCESS WITHOUT SINUS 12/14/2016 JOSE DO, MARC K Ot K08.89 OTHER SPECIFIED DISORDERS OF TEETH AND S 12/14/2016 JOSE MARC K Ot Z87.448 PERSONAL HISTORY OF OTHER DISEASES OF UR 12/14/2016 JOSE , MARC K Ot Z87.59 PERSONAL HISTORY OF COMP OF PREG, CHLDBR 12/14/2016 JOSE MARC K Ot Z90.710 ACQUIRED ABSENCE OF BOTH CERVIX AND UTER 12/17/2016 GALLO ALDRIDGE MD Ot F17.210 NICOTINE DEPENDENCE, CIGARETTES, UNCOMPL 12/17/2016 GALLO ALDRIDGE MD Ot K02.9 DENTAL CARIES, UNSPECIFIED 12/17/2016 GALLO ALDRIDGE MD T Ot K08.89 OTHER SPECIFIED DISORDERS OF TEETH AND S 12/17/2016 GALLO ALDRIDGE MD T Ot L03.211 CELLULITIS OF FACE 12/17/2016 GALLO ALDRIDGE MD Ot Z87.59 PERSONAL HISTORY OF COMP OF PREG, CHLDBR 12/17/2016 GALLO ALDRIDGE MD Ot Z90.710 ACQUIRED ABSENCE OF BOTH CERVIX AND UTER 12/19/2016 GALLO ALDRIDGE MD Ot F17.210 NICOTINE DEPENDENCE, CIGARETTES, UNCOMPL 12/19/2016 GALLO ALDRIDGE MD Ot K02.9 DENTAL CARIES, UNSPECIFIED 12/19/2016 GALLO ALDRIDGE MD T Ot K08.89 OTHER SPECIFIED DISORDERS OF TEETH AND S 12/19/2016 GALLO ALDRIDGE MD T Ot L03.211 CELLULITIS OF FACE 12/19/2016 GALLO ALDRIDGE MD Ot Z87.59 PERSONAL HISTORY OF COMP OF PREG, CHLDBR 12/19/2016 GALLO ALDRIDGE MD Ot Z90.710 ACQUIRED ABSENCE OF BOTH CERVIX AND UTER 12/19/2016 GALLO ALDRIDGE MD Ot F17.210 NICOTINE DEPENDENCE, CIGARETTES, UNCOMPL 12/19/2016 GALLO ALDRIDGE MD Ot K02.9 DENTAL CARIES, UNSPECIFIED 12/19/2016 GALLO ALDRIDGE MD Ot K08.89 OTHER SPECIFIED DISORDERS OF TEETH AND S 12/19/2016 GALLO ALDRIDGE MD Ot L03.211 CELLULITIS OF FACE 12/19/2016 GALLO ALDRIDGE MD Ot Z87.59 PERSONAL HISTORY OF COMP OF PREG, CHLDBR 12/19/2016 GALLO ALDRIDGE MD Ot Z90.710 ACQUIRED ABSENCE OF BOTH CERVIX AND UTER 01/30/2017 Ot 654.23 PREV DELIVERY, ANTEPARTUM COND 01/30/2017 Ot V72.83 EXAM PRE- OPERATIVE NEC 01/30/2017 Ot V74.8 SCREEN- BACTERIAL DIS NEC 07/30/2017 Ot 654.23 PREV DELIVERY, ANTEPARTUM COND 07/30/2017 Ot V72.83 EXAM PRE- OPERATIVE NEC 07/30/2017 Ot V74.8 SCREEN- BACTERIAL DIS NEC 06/16/2018 GALLO ALDRIDGE MD Ot F17.210 NICOTINE DEPENDENCE, CIGARETTES, UNCOMPL 06/16/2018 GALLO ALDRIDGE MD Ot J10.1 FLU DUE TO OT IDENT INFLUENZA VIRUS W O 06/16/2018 GALLO ALDRIDGE MD Ot R07.89 OTHER CHEST PAIN 06/16/2018 GALLO ALDRIDGE MD Ot R11.2 NAUSEA WITH VOMITING, UNSPECIFIED 06/16/2018 GALLO ALDRIDGE MD Ot Z86.19 PERSONAL HISTORY OF OTHER INFECTIOUS AND 06/16/2018 GALLO ALDRIDGE MD Ot Z90.710 ACQUIRED ABSENCE OF BOTH CERVIX AND UTER 06/16/2018 GALLO ALDRIDGE MD Ot Z98.890 OTHER SPECIFIED POSTPROCEDURAL STATES 06/18/2018 GALLO ALDRIDGE MD Ot F17.210 NICOTINE DEPENDENCE, CIGARETTES, UNCOMPL 06/18/2018 GALLO ALDRIDGE MD, Ot J10.1 FLU DUE TO OTH IDENT INFLUENZA VIRUS W O 06/18/2018 GALLO ALDRIDGE MD, Ot R07.89 OTHER CHEST PAIN 06/18/2018 GALLO ALDRIDGE MD, Ot R11.2 NAUSEA WITH VOMITING, UNSPECIFIED 06/18/2018 GALLO ALDRIDGE MD, Ot Z86.19 PERSONAL HISTORY OF OTHER INFECTIOUS AND 06/18/2018 GALLO ALDRIDGE MD, Ot Z90.710 ACQUIRED ABSENCE OF BOTH CERVIX AND UTER 06/18/2018 GALLO ALDRIDGE MD, Ot Z98.890 OTHER SPECIFIED POSTPROCEDURAL STATES Procedures Code Description Performed By Performed On 74.1 10/23/2010 68.49 OTHER AND UNSPECIFIED TOTAL ABDOMINAL HY 04/04/2011 52080 PAP SMEAR 07/03/2011 93513 PSYCH DIAG INTER EXAM 02/09/2012 55363 PSYCH IND W/MED CK 20 05/08/2012 36833 CULTURE UROGENITAL 05/08/2012 00999 SMEAR WET M[place] SALINE/INK 05/08/2012 36961 GC/CHLAM PROBE (STATE) 05/08/2012 90568 PAP SMEAR 05/08/2012 Q0091 PAP SMEAR OBTAIN SMEAR 05/08/2012 Results Test Result Range Complete blood count (CBC) with automated white blood cell (WBC) differential - 12/17/16 09:30 Blood leukocytes automated count (number/volume) 12.7 10*3/uL 4.3-11.0 Blood erythrocytes automated count (number/volume) 4.37 10*6/uL 4.35-5.85 Venous blood hemoglobin measurement (mass/volume) 13.7 g/dL 11.5-16.0 Blood hematocrit (volume fraction) 41 % 35-52 Automated erythrocyte mean corpuscular volume 95 [foz_us] 80-99 Automated erythrocyte mean corpuscular hemoglobin (mass per erythrocyte) 31 pg 25-34 Automated erythrocyte mean corpuscular hemoglobin concentration measurement ( mass/volume) 33 g/dL 32-36 Automated erythrocyte distribution width ratio 13.3 % 10.0-14.5 Automated blood platelet count (count/volume) 434 10*3/uL 130-400 Automated blood platelet mean volume measurement 11.4 [foz_us] 7.4-10.4 Automated blood neutrophils/100 leukocytes 64 % 42-75 Automated blood lymphocytes/100 leukocytes 23 % 12-44 Blood monocytes/100 leukocytes 9 % 0-12 Automated blood eosinophils/100 leukocytes 3 % 0-10 Automated blood basophils/100 leukocytes 0 % 0-10 Blood neutrophils automated count (number/volume) 8.2 10*3 1.8-7.8 Blood lymphocytes automated count (number/volume) 3.0 10*3 1.0-4.0 Blood monocytes automated count (number/volume) 1.2 10*3 0.0-1.0 Automated eosinophil count 0.3 10*3/uL 0.0-0.3 Automated blood basophil count (count/volume) 0.1 10*3/uL 0.0-0.1 Comprehensive metabolic panel - 12/17/16 09:30 Serum or plasma sodium measurement (moles/volume) 140 mmol/L 135-145 Serum or plasma potassium measurement (moles/volume) 4.0 mmol/L 3.6-5.0 Serum or plasma chloride measurement (moles/volume) 108 mmol/L 98-107 Carbon dioxide 24 mmol/L 21-32 Serum or plasma anion gap determination (moles/volume) 8 mmol/L 5-14 Serum or plasma urea nitrogen measurement (mass/volume) 5 mg/dL 7-18 Serum or plasma creatinine measurement (mass/volume) 0.67 mg/dL 0.60-1.30 Serum or plasma urea nitrogen/creatinine mass ratio 7 NRG Serum or plasma creatinine measurement with calculation of estimated glomerular filtration rate > NRG Serum or plasma glucose measurement (mass/volume) 88 mg/dL 70-105 Serum or plasma calcium measurement (mass/volume) 9.3 mg/dL 8.5-10.1 Serum or plasma total bilirubin measurement (mass/volume) 0.4 mg/dL 0.1-1.0 Serum or plasma alkaline phosphatase measurement (enzymatic activity/volume) 65 U/L 40-136 Serum or plasma aspartate aminotransferase measurement (enzymatic activity/ volume) 20 U/L 5-34 Serum or plasma alanine aminotransferase measurement (enzymatic activity/volume ) 24 U/L 0-55 Serum or plasma protein measurement (mass/volume) 7.8 g/dL 6.4-8.2 Serum or plasma albumin measurement (mass/volume) 4.3 g/dL 3.2-4.5 Serum or plasma C reactive protein measurement (mass/volume) - 12/17/16 09:30 Serum or plasma C reactive protein measurement (mass/volume) 2.65 mg /dL 0.00-0.50 Bacterial blood culture - 12/17/16 10:00 Bacterial blood culture NG NRG Bacterial blood culture - 12/17/16 10:10 Bacterial blood culture NG NRG Influenza virus A and B antigen detection - 06/12/18 08:30 CALL POSITIVES (F1 HELP) CALLED TO MISAEL AT 0857/RLT NRG FLU RESULT POSITIVE FOR INFLUENZA A ANTIGEN, NEG FOR B ANTIGEN, BY IA NRG Encounters ACCT No. Visit Date/Time Discharge Status Pt. Type Provider Facility Loc./Unit Complaint [id number] 06/12/2018 08:15:00 06/12/2018 09:44:00 DIS Outpatient GALLO ALDRIDGE MD Via [facility] ER BODY ACHES;CHEST CONGESTION;TROUBLE BREATHING [id number] 12/17/2016 08:37:00 12/17/2016 11:57:00 DIS Emergency GALLO ALDRIDGE MD [facility] ER TOOTH ABCESS [id number] 12/12/2016 23:38:00 12/13/2016 00:38:00 DIS Emergency MARC GARCIA DO [facility] ER DENTAL PAIN [id number] 07/09/2016 16:18:00 07/09/2016 19:25:00 DIS Emergency NAVA VOGEL [facility] ER DENTAL PAIN [id number] 01/09/2016 08:48:00 01/09/2016 23:59:59 CLS Outpatient LATASHA DHILLON DO [facility] RAD BREAST MASS IN FEMALE ,MASTALGIA IN FEMALE [id number] 10/15/2012 12:44:00 10/15/2012 15:53:00 DIS Emergency GALLO ALDRIDGE MD [facility] ER HEAD PAIN [id number] 01/09/2016 08:48:00 Document Registration [id number] 09/21/2011 18:23:00 Document Registration [id number] 04/07/2011 20:12:00 Document Registration [id number] 04/04/2011 05:33:00 Document Registration [id number] 03/29/2011 15:49:00 Document Registration [id number] 10/23/2010 17:19:00 Document Registration [id number] 10/08/2010 19:25:00 Document Registration [id number] 10/06/2010 13:34:00 Document Registration [id number] 01/17/2009 15:54:00 Document Registration [id number] 08/17/2013 14:30:00 08/17/2013 23:59:59 CLS Outpatient MILES MAXINE [id number] 08/08/2013 11:36:00 08/08/2013 23:59:59 CLS Outpatient MILES MAXINE [id number] 06/23/2013 11:22:00 06/23/2013 23:59:59 CLS Outpatient VOVICKIE PINTO STRUCTURAL ANALYSIS ENGINEERELOINA Shilpi [id number] 12/16/2012 13:15:00 12/16/2012 23:59:59 CLS Outpatient BISI MILES DOLatoya Hogan [id number] 06/23/2012 13:39:00 06/23/2012 23:59:59 CLS Outpatient JOSLYN NIEVES APRN [id number] 05/08/2012 13:26:00 05/08/2012 23:59:59 CLS Outpatient NIEVES JOSLYN HESS [id number] 02/07/2012 09:34:00 02/07/2012 23:59:59 CLS Outpatient NIEVES JOSLYN HESS [id number] 02/07/2012 09:34:00 02/07/2012 23:59:59 CLS Outpatient NIEVES JOSLYN HESS [id number] 10/20/2012 13:09:00 Document Registration [id number] 10/03/2012 14:32:00 Document Registration [id number] 10/17/2017 17:00:00 10/17/2017 23:59:59 CLS Outpatient MIRIAM ACOSTA [facility]
[2018-08-06] MEDS ORDERED: AMOX-358 PO (01:06)
[2018-08-06] MEDS ORDERED: METH4TAB PO (01:06)
[2018-08-06] MEDS ORDERED: FLUT9.9S NS (01:06)
[2018-08-06] MEDS ORDERED: LORA1TAB59 PO (01:06)
--- NOTE | 2018-08-06 01:06 | ED EENT ---
History of Present Illness General Stated Complaint: RT EAR PAIN,CONGESTION Source: patient History of Present Illness Date Seen by Provider: August 06, 2018 Time Seen by Provider: 00:52 Initial Comments PT ARRIVES VIA POV FROM HOME STATES YESTERDAY SHE STARTED HAVING NASAL CONGESTION TONIGHT AROUND 2330, SHE HAD A LOUD "SCREECH" IN HER RIGHT EAR, AND THEN HEARD A POP AND THEN HAD BLOOD AND YELLOW DRAINAGE FROM RIGHT EAR NO FEVER HAS NOT TAKEN ANYTHING FOR SYMPTOMS HAD BMT'S WHEN SHE WAS A CHILD, BUT NO EAR PROBLEMS AN ADULT PCP: DR. JARAMILLO Allergies and Home Medications Allergies Coded Allergies: No Known Drug Allergies (Verified , 03/22/07) Home Medications Amoxicillin/Potassium Clav 1 Each Tablet, 1 EACH PO BID Prescribed by: MARC GARCIA on 08/06/18105 Fluticasone Propionate 9.9 Ml [place].susp, 2 SPRAYS NS BID Prescribed by: MARC GARCIA on 08/06/18105 Loratadine/Pseudoephedrine 1 Each Tab.er.12h, 1 EACH PO BID Prescribed by: MARC GARCIA on 08/06/18105 Methylprednisolone 4 Mg Tab.ds.pk, 4 MG PO UD Prescribed by: MARC GARCIA on 08/06/18105 Patient Home Medication List Home Medication List Reviewed: Yes Review of Systems Review of Systems Constitutional: no symptoms reported; No fever Eyes: No Symptoms Reported Ears: See HPI; Denies Dizziness; Pain, Bloody Discharge, Purulent Discharge Nose: see HPI, congestion Mouth: no symptoms reported Throat: no symptoms reported Respiratory: no symptoms reported Cardiovascular: no symptoms reported Gastrointestinal: no symptoms reported Musculoskeletal: no symptoms reported Skin: no symptoms reported Neurological: No Symptoms Reported Hematologic/Lymphatic: No Symptoms Reported Immunological/Allergic: no symptoms reported Past Rfqbqku-Xilxwt-Bvfodn Hx Patient Social History Alcohol Use: Rarely Uses Recreational Drug Use: No Smoking Status: Current Everyday Smoker (1 PPD) Type Used: Cigarettes 2nd Hand Smoke Exposure: No Recent Foreign Travel: No Contact w/Someone Who Travel: No Recent Hopitalizations: No Immunizations Up To Date Date of Influenza Vaccine: Dec 30, 2010 Seasonal Allergies Seasonal Allergies: Yes Past Medical History Surgeries: Yes (HYST/OVARIES IN PLACE 2011; X 3; BMT'S) Section, Ear Surgery, Hysterectomy Respiratory: No Cardiac: No Neurological: No Reproductive Disorders: Yes (CERVICAL DYSPLASIA--S/P HYST) 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 0.0oz. 58.559583vs; 24.03 BMI Method:Stated General Appearance: WD/WN, no apparent distress Eyes: bilateral eye normal inspection, bilateral eye PERRL, bilateral eye EOMI Ears: bilateral ear erythema, bilateral ear other (TM'S INFLAMED AND WITH EFFUSIONS BILATERALLY. NO EVIDENCE OF PERFORATION AND NO FLUID/DEBRIS IN CANALS OR EVIDENCE OF BLEEDING/INJURY. ) Nose: No sinus tenderness; other (NASAL CONGESTION) Mouth/Throat: normal mouth inspection, pharynx normal Neck: non-tender, full range of motion, supple, lymphadenopathy (R) (MILD ANTERIOR), lymphadenopathy (L) (MILD ANTERIOR) Cardiovascular: regular rate, rhythm, no murmur Respiratory: normal breath sounds Neurologic/Psychiatric: manager supply II-XII nml as tested, no motor/sensory deficits, alert, normal mood/affect, oriented x 3 Skin: normal color, warm/dry Progress/Results/Core Measures Results/Orders My Orders Orders - MARC GARCIA DO Amoxicillin/Clavulanate Tablet (Augmenti (08/06/18 01:15) Prednisone Tablet (Deltasone Tablet) (08/06/18 01:15) Medications Given in ED Current Medications Medications Dose Ordered Sig/Manuel Route Start Time Stop Time Status Last Admin Dose Admin Prednisone 40 mg ONCE ONCE PO 08/06/18 01:15 08/06/18 01:15 DC 08/06/18 01:08 40 MG Vital Signs/I&O 08/06/18 08/06/18 00:55 01:10 Temp 98.0 98.0 Pulse 78 76 Resp 18 18 B/P (MAP) 114/77 (89) 115/75 (88) Pulse Ox 98 Departure Impression Primary Impression: Bilateral otitis media with effusion Additional Impressions: Upper respiratory infection POSSIBLE RUPTURED EARDRUM Disposition: 01 HOME, SELF-CARE Condition: Stable Departure-Patient Inst. Referrals: JOSE JARAMILLO DO (PCP/Family) Primary Care Physician Patient Instructions: Bacterial Upper Respiratory Infection, Adult, Ear Infections (Otitis Media) (DC), Ruptured Eardrum (DC), Serous Otitis Media (DC) Add. Discharge Instructions: TYLENOL AND MOTRIN NEEDED FOR PAIN LOTS OF FLUIDS FOLLOW UP WITH YOUR DR IN 2-3 DAYS IF NO BETTER Scripts Methylprednisolone (Medrol) 4 Mg Tab.ds.pk 4 MG PO UD, #1 PKG Prov: MARC GARCIA DO 08/06/18 Fluticasone Propionate (Flonase Allergy Relief) 9.9 Ml [place].susp 2 SPRAYS NS BID, #1 SPRAY Prov: MARC GARCIA DO 08/06/18 Loratadine/Pseudoephedrine (Claritin-D 12 Hour Tablet) 1 Each Tab.er.12h 1 EACH PO BID, #20 TAB Prov: MARC GARCIA DO 08/06/18 Amoxicillin/Potassium Clav (Augmentin 875-125 Tablet) 1 Each Tablet 1 EACH PO BID for INFECTION, #20 TAB Prov: MARC GARCIA DO 08/06/18 MARC GARCIA DO August 06, 2018 01:06
[2018-08-06 01:10] VITALS: BP 115/75
[2018-08-06] MEDS ORDERED: AUGMENTIN 875 MG TAB (AMOXICILLIN/CLAVULANATE) PO SCH (01:15)
[2018-08-06] MEDS ORDERED: predniSONE 20 MG TAB PO ONE (01:15)
== END 2018-08-06 01:11 | disposition home or self-care (01) ==
LOC: EDUNIT# 00:39 → ER 00:45
DX: H65.93 Unspecified nonsuppurative otitis media, bilateral (principal); J06.9 Acute upper respiratory infection, unspecified; F17.210 Nicotine dependence, cigarettes, uncomplicated; Z79.51 Long term (current) use of inhaled steroids; Z79.52 Long term (current) use of systemic steroids; Z98.890 Other specified postprocedural states; Z90.710 Acquired absence of both cervix and uterus
CPT/HCPCS: 99283

== ENCOUNTER 2019-04-23 16:06 | Emergency (ER) | payer SELFPAY ==
[~2019-04-23] VITALS: Ht 147.3 cm; Wt 61.6 kg
[~2019-04-23 16:06] MED LIST changes: +FLUT9.9S NS; +LORA1TAB59 PO; +METH4TAB PO; -TRAM50TA2 PO; +TRM50T PO
--- NOTE | 2019-04-23 16:19 | ED Chest Pain ---
General Stated Complaint: SHARP PAIN IN CHEST Source: patient Exam Limitations: no limitations History of Present Illness Date Seen by Provider: Apr 23, 2019 Time Seen by Provider: 16:17 Initial Comments To ER with reports of sharp left-sided chest pain sudden in onset while cleaning her house and preparing dinner. She also had some tingling in the back of her tongue, difficulty speaking, sensation of her heart beating fast. She is feeling a little better now but is still tearful upon arrival to ER. Timing/Duration: 1/2 hour Severity/Quality: moderate, sharp Activities at Onset: none Prior CP/Workup: no prior chest pain ASA po TANYARD WORKER: No NTG SL TANYARD WORKER: No Allergies and Home Medications Allergies Coded Allergies: No Known Drug Allergies (Verified , 03/22/07) Home Medications Amoxicillin/Potassium Clav 1 Each Tablet, 1 EACH PO BID Prescribed by: MARC GARCIA on 08/06/18105 Fluticasone Propionate 9.9 Ml [place].susp, 2 SPRAYS NS BID Prescribed by: MARC GARCIA on 08/06/18105 Loratadine/Pseudoephedrine 1 Each Tab.er.12h, 1 EACH PO BID Prescribed by: MARC GARCIA on 08/06/18105 Methylprednisolone 4 Mg Tab.ds.pk, 4 MG PO UD Prescribed by: MARC GARCIA on 08/06/18105 Patient Home Medication List Home Medication List Reviewed: Yes Review of Systems Review of Systems Constitutional: see HPI EENTM: No Symptoms Reported Cardiovascular: See HPI, Chest Pain Gastrointestinal: No Symptoms Reported Genitourinary: No Symptoms Reported Musculoskeletal: no symptoms reported Skin: no symptoms reported Psychiatric/Neurological: No Symptoms Reported Endocrine: No Symptoms Reported Past Tisetdm-Sjqjqm-Uwbcak Hx Patient Social History Type Used: Cigarettes 2nd Hand Smoke Exposure: No Recent Foreign Travel: No Contact w/Someone Who Travel: No Recent Hopitalizations: No Immunizations Up To Date Date of Influenza Vaccine: Dec 30, 2010 Seasonal Allergies Seasonal Allergies: Yes Past Medical History Surgeries: Yes (HYST/OVARIES IN PLACE 2011; X 3; BMT'S) Section, Ear Surgery, Hysterectomy Respiratory: No Cardiac: No Neurological: No Reproductive Disorders: Yes (CERVICAL DYSPLASIA--S/P HYST) 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 0oz. 56.072322ti; 24.03 BMI Method:Stated General Appearance: No Apparent Distress, WD/WN, Anxious (tearful) HEENT: PERRL/EOMI, TMs Normal Neck: Full Range of Motion, Normal Inspection Respiratory: Chest Non Tender, Lungs Clear, Normal Breath Sounds, No Accessory Muscle Use, No Respiratory Distress Cardiovascular: Normal Peripheral Pulses, Tachycardia (sinus narrow complex regular at rate of 120) Gastrointestinal: Non Tender, Soft Neurologic/Psychiatric: Alert, Oriented x3 Skin: Normal Color, Warm/Dry Progress/Results/Core Measures Results/Orders Lab Results Laboratory Tests Test 04/23/19 16:10 Range/Units White Blood Count 12.6 H 4.3-11.0 10^3/uL Red Blood Count 4.52 4.35-5.85 10^6/uL Hemoglobin 13.9 11.5-16.0 G/DL Hematocrit 42 35-52 % Mean Corpuscular Volume 94 80-99 FL Mean Corpuscular Hemoglobin 31 25-34 PG Mean Corpuscular Hemoglobin Concent 33 32-36 G/DL Red Cell Distribution Width 13.2 10.0-14.5 % Platelet Count 386 130-400 10^3/uL Mean Platelet Volume 10.4 7.4-10.4 FL Neutrophils (%) (Auto) 52 42-75 % Lymphocytes (%) (Auto) 40 12-44 % Monocytes (%) (Auto) 7 0-12 % Eosinophils (%) (Auto) 1 0-10 % Basophils (%) (Auto) 0 0-10 % Neutrophils # (Auto) 6.5 1.8-7.8 X 10^3 Lymphocytes # (Auto) 5.0 H 1.0-4.0 X 10^3 Monocytes # (Auto) 0.9 0.0-1.0 X 10^3 Eosinophils # (Auto) 0.1 0.0-0.3 10^3/uL Basophils # (Auto) 0.1 0.0-0.1 10^3/uL D-Dimer < 0.27 0.00-0.49 UG/ML Sodium Level 139 135-145 MMOL/L Potassium Level 3.6 3.6-5.0 MMOL/L Chloride Level 106 98-107 MMOL/L Carbon Dioxide Level 22 21-32 MMOL/L Anion Gap 11 5-14 MMOL/L Blood Urea Nitrogen 6 L 7-18 MG/DL Creatinine 0.74 0.60-1.30 MG/DL Estimat Glomerular Filtration Rate > 60 BUN/Creatinine Ratio 8 Glucose Level 109 H 70-105 MG/DL Calcium Level 9.6 8.5-10.1 MG/DL Corrected Calcium 8.5-10.1 MG/DL Total Bilirubin 0.5 0.1-1.0 MG/DL Aspartate Amino Transf (AST/SGOT) 16 5-34 U/L Alanine Aminotransferase (ALT/SGPT) 15 0-55 U/L Alkaline Phosphatase 48 40-136 U/L Troponin I < 0.028 <0.028 NG/ML Total Protein 7.8 6.4-8.2 GM/DL Albumin 4.7 H 3.2-4.5 GM/DL Thyroid Stimulating Hormone (TSH) 0.51 0.35-4.94 UIU/ML Free Thyroxine 1.09 0.70-1.48 NG/DL My Orders Orders - DEBBIE BOSS APRN Cbc With Automated Diff (04/23/19 16:10) Comprehensive Metabolic Panel (04/23/19 16:10) Chest Pa/Lat (2 View) (04/23/19 16:10) Ekg Tracing (04/23/19 16:10) Troponin I (04/23/19 16:10) Fibrin Degradation Products (04/23/19 16:10) Thyroid Stimulating Hormone (04/23/19 16:10) Free T4 (Free Thyroxine) (04/23/19 16:10) Ed Iv/Invasive Line Start (04/23/19 16:10) Vital Signs/I&O 04/23/19 04/23/19 16:06 16:06 Temp 36.7 Pulse 120 Resp 20 B/P (MAP) 147/99 (115) Pulse Ox 100 O2 Delivery Room Air Room Air Departure Communication (Admissions) Overall feeling better does have some residual sharp chest pain on deep inspiration. We will discharge to home. Impression Primary Impression: Pleurisy Disposition: HOME, SELF-CARE Condition: Stable Departure-Patient Inst. Decision time for Depature: 17:33 Referrals: JOSE JARAMILLO DO (PCP/Family) Primary Care Physician Patient Instructions: Pleuritic Chest Pain (DC) Add. Discharge Instructions: 1. Tylenol and ibuprofen for pain control. Return to ER for any concerns. Follow-up with your doctor next week. DEBBIE BOSS APRN Apr 23, 2019 16:19
[2019-04-23 16:35] LABS: BASOPHILS # (AUTO) 0.1 10^3/uL (0.0-0.1); BASOPHILS % (AUTO) 0 % (0-10); EOSINOPHILS # (AUTO) 0.1 10^3/uL (0.0-0.3); EOSINOPHILS % (AUTO) 1 % (0-10); HEMATOCRIT 42 % (35-52); HEMOGLOBIN 13.9 G/DL (11.5-16.0); LYMPHOCYTES % (AUTO) 40 % (12-44); MEAN CORPUSCULAR HEMOGLOBIN 31 PG (25-34); MEAN CORPUSCULAR HGB CONC 33 G/DL (32-36); MEAN CORPUSCULAR VOLUME 94 FL (80-99); MEAN PLATELET VOLUME 10.4 FL (7.4-10.4); MONOCYTES # (AUTO) 0.9 X 10^3 (0.0-1.0); MONOCYTES % (AUTO) 7 % (0-12); NEUTROPHILS # (AUTO) 6.5 X 10^3 (1.8-7.8); NEUTROPHILS % (AUTO) 52 % (42-75); PLATELET COUNT 386 10^3/uL (130-400); RED CELL DISTRIBUTION WIDTH 13.2 % (10.0-14.5); WHITE BLOOD COUNT 12.6 10^3/uL (4.3-11.0)
[2019-04-23 16:48] LABS: ALANINE AMINOTRANSFERASE 15 U/L (0-55); ALBUMIN 4.7 GM/DL (3.2-4.5); ALKALINE PHOSPHATASE 48 U/L (40-136); BILIRUBIN,TOTAL 0.5 MG/DL (0.1-1.0); BUN/CREATININE RATIO 8; CALCIUM 9.6 MG/DL (8.5-10.1); CARBON DIOXIDE 22 MMOL/L (21-32); CHLORIDE 106 MMOL/L (98-107); CREATININE SERUM 0.74 MG/DL (0.60-1.30); GFR ESTIMATED > 60; GLUCOSE 109 MG/DL (70-105); POTASSIUM 3.6 MMOL/L (3.6-5.0); SODIUM 139 MMOL/L (135-145); TOTAL PROTEIN 7.8 GM/DL (6.4-8.2)
--- NOTE | 2019-04-23 17:00 | Diagnostic Imaging Report ---
INDICATION: Shortness of air, chest discomfort, palpitations. TECHNIQUE: Two view chest 4:54 PM CORRELATION STUDY: 06/12/2018 FINDINGS: The heart size, mediastinal configuration and pulmonary vasculature are within normal limits. The lungs are clear with no consolidating infiltrate. There is no significant pleural effusion or pneumothorax. Visualized osseous structures are unremarkable. IMPRESSION: 1. Negative for acute abnormality of the chest. Dictated by: Dictated on workstation # [id number]
[2019-04-23 17:09] LABS: FREE T4 (FREE THYROXINE) 1.09 NG/DL (0.70-1.48)
[2019-04-23 17:48] VITALS: BP 123/78
== END 2019-04-23 17:48 | disposition home or self-care (01) ==
LOC: EDUNIT# 16:06 → ER 16:08
DX: R09.1 Pleurisy (principal); Z79.51 Long term (current) use of inhaled steroids; Z79.52 Long term (current) use of systemic steroids; Z90.710 Acquired absence of both cervix and uterus
CPT/HCPCS: 36415; 71046; 80053; 84439; 84443; 84484; 85025; 85379; 93005